=== PATIENT | male | born 1965 | race African-American/Black ===

== ENCOUNTER 2025-02-16 22:04 | Emergency (ER) | payer OTHER ==
[~2025-02-16] VITALS: Ht 182.9 cm; Wt 131.5 kg
[2025-02-16 22:04] VITALS: BP 149/96
[2025-02-16] MEDS: KETOROLAC TROMETHAMINE 30 MG INJ IM ONE (22:47)
[2025-02-16] MEDS: HYDROCODONE/APAP 10-325 MG TABLET PO ONE (22:47)
[2025-02-16] MEDS ORDERED: PRED20TA PO (23:11)
[2025-02-16] MEDS ORDERED: COLC0.6T67 PO (23:11)
[2025-02-17 00:03] VITALS: BP 139/88; O2SAT 99
== END 2025-02-17 00:01 | disposition home or self-care (01) ==
LOC: ER 22:14
DX: M10.072 Idiopathic gout, left ankle and foot (principal); M10.071 Idiopathic gout, right ankle and foot; Z79.52 Long term (current) use of systemic steroids
CPT/HCPCS: 99283; 96372; J1885; A4606; A4663